=== PATIENT | female | born 1965 | race Caucasian/White ===

== ENCOUNTER 2017-06-23 13:53 | Day surgery (SDC) | payer BC, MEDICARE ==
[2017-06-19 10:01] LABS: BASOPHILS % (AUTO) 0.3 % (0-1); EOSINOPHILS # (AUTO) 0.3 X10'3 (0-0.9); EOSINOPHILS % (AUTO) 3.1 % (0-6); HEMATOCRIT 40.9 % (35.0-45.0); LYMPHOCYTES # (AUTO) 2.6 X10'3 (1.1-4.8); LYMPHOCYTES % (AUTO) 29.3 % (21-51); MEAN CORPUSCULAR HGB CONC 34.2 % (33.0-36.5); MEAN CORPUSCULAR VOLUME 87.7 FL (78-98); MEAN PLATELET VOLUME 7.7 FL (7.4-10.4); MONOCYTES # (AUTO) 0.4 X10'3 (0-0.9); MONOCYTES % (AUTO) 4.8 % (2-12); NEUTROPHILS # (AUTO) 5.6 X10'3 (1.8-7.7); NEUTROPHILS % (AUTO) 62.5 % (42-75); PLATELET COUNT 300 X10'3 (140-440); RED BLOOD COUNT 4.66 X10'6 (4.20-5.60); RED CELL DISTRIBUTION WIDTH 15.1 % (11.5-14.5); WHITE BLOOD COUNT 8.9 X10'3 (4.5-11.0)
[2017-06-19 10:11] LABS: INR 0.9 INR; PARTIAL THROMBOPLASTIN TIME 27 SECONDS (22-32); PROTHROMBIN TIME 9.7 SECONDS (9.0-12.0)
[2017-06-19 10:16] LABS: ALBUMIN 3.3 G/DL (3.4-5.0); ANION GAP 8 (8-16); BLOOD UREA NITROGEN 11 MG/DL (7-18); CALCIUM 8.6 MG/DL (8.5-10.1); CHLORIDE 108 MMOL/L (99-107); CHOL/HDL RATIO 3.2 (0.00-4.99); CHOLESTEROL 110 MG/DL (0-200); GLUCOSE 105 MG/DL (70-104); HDL CHOLESTEROL 34 MG/DL (35-60); LDL CHOLESTEROL 67 MG/DL (50-100); SODIUM 143 MMOL/L (135-145); TOTAL CARBON DIOXIDE 27.2 MMOL/L (24-32); TRIGLYCERIDES 121 MG/DL (20-135); eGFR > 90 ML/MIN
[2017-06-23] VITALS (7 sets, daily range): BP systolic 129–162; BP diastolic 77–97
[~2017-06-23] VITALS: Ht 162.6 cm; Wt 95.0 kg
[~2017-06-23 13:53] MED LIST: ADAL40KI SQ; ASPI-1265 PO; ATOR20TA66 PO; FLUT16SP2 NS; IBUP-1984 PO; LOP25T PO; LOSA50TA3 PO; MESA10002 RC; [UNRECOGNIZED DRUG - CODE] NS
[2017-06-23] MEDS ORDERED: normal saline 1000ml 1,000 ML IV SCH (14:10)
[2017-06-23] MEDS ORDERED: diphenhydrAMINE 25mg capsule PO PRN (14:10)
[2017-06-23] MEDS ORDERED: LORazepam 0.5 MG tablet PO PRN (14:10)
[2017-06-23] MEDS ORDERED: FURO-149 PO (14:34)
[2017-06-23] MEDS ORDERED: ASCO500C15 PO (14:34)
[2017-06-23] MEDS ORDERED: POTA10CA44 PO (14:34)
[2017-06-23] MEDS ORDERED: METO-467 PO (14:34)
[2017-06-23] MEDS ORDERED: NITR0.4T51 SL (14:34)
[2017-06-23] MEDS ORDERED: iohexol 350MG/ML 100ml bottle IV ONE (16:20)
[2017-06-23] MEDS ORDERED: fentaNYL/PF 50MCG/1 ML 2ML syringe ONE (16:20)
[2017-06-23] MEDS ORDERED: midazolam 2 mg/2 ml injection ONE (16:20)
[2017-06-23] MEDS ORDERED: LIDOcaine 1%/PF (10mg/ml) 5ml vial ONE (16:23)
[2017-06-23] MEDS ORDERED: hydrALAZINE 20mg/ml inj. IV ONE (17:13)
[2017-06-23] MEDS ORDERED: ondansetron/PF 4mg/2ml inj IV PRN (17:55)
[2017-06-23] MEDS ORDERED: OXAZEpam 15mg capsule PO PRN (17:55)
[2017-06-23] MEDS ORDERED: proCHLORperazine 10 MG/2 ml inj IV PRN (17:55)
== END 2017-06-23 19:25 | disposition home or self-care (01) ==
LOC: SSTAY O 13:53
PROVIDERS: ATTEND Internal Medicine Interventional Cardiology
DX: I25.10 Atherosclerotic heart disease of native coronary artery without angina pectoris (principal); I25.2 Old myocardial infarction; I10 Essential (primary) hypertension; Z95.5 Presence of coronary angioplasty implant and graft
CPT/HCPCS: 36415; 80048; 80061; 85025; 85610; 85730; 93005; 93458; A6257; C1760; C1769; J0360; J1644; J2001; J2250; J3010; J7030; Q0163; Q9967; 99152; 99153; A4620

== ENCOUNTER 2019-01-22 04:23 | Outpatient (CLI) | payer BC, MEDICARE ==
[~2019-01-22 04:23] MED LIST changes: +ASCO500C15 PO; +FURO-149 PO; -LOP25T PO; -MESA10002 RC; +METO-467 PO; +NITR0.4T51 SL; +POTA10CA44 PO
== END 2019-01-22 23:59 | disposition home or self-care (01) ==
LOC: DIABETIC 04:23
PROVIDERS: ATTEND Nurse Practitioner Family
DX: E11.9 Type 2 diabetes mellitus without complications (principal); E78.5 Hyperlipidemia, unspecified; I10 Essential (primary) hypertension; J45.909 Unspecified asthma, uncomplicated; Z79.82 Long term (current) use of aspirin; Z79.899 Other long term (current) drug therapy
CPT/HCPCS: G0108

== ENCOUNTER 2019-02-22 00:36 | Outpatient (CLI) | payer BC, MEDICARE | END 2019-02-22 23:59 | disposition home or self-care (01) | LOC: DIABETIC 00:36 | PROVIDERS: ATTEND Nurse Practitioner Family | DX: E11.9 Type 2 diabetes mellitus without complications (principal); E78.5 Hyperlipidemia, unspecified; I10 Essential (primary) hypertension; J45.909 Unspecified asthma, uncomplicated | CPT/HCPCS: G0108 ==

== ENCOUNTER 2019-03-08 08:47 | Day surgery (SDC) | payer BC, MEDICARE ==
[2019-03-08] MEDS ORDERED: LIDOcaine 2% 5ml jelly ONE (09:28)
== END 2019-03-08 10:40 | disposition home or self-care (01) ==
LOC: WOUND CARE 08:47
PROVIDERS: ATTEND Surgery
DX: E11.622 Type 2 diabetes mellitus with other skin ulcer (principal); L89.892 Pressure ulcer of other site, stage 2; J45.909 Unspecified asthma, uncomplicated; I10 Essential (primary) hypertension; I25.10 Atherosclerotic heart disease of native coronary artery without angina pectoris; I25.2 Old myocardial infarction; E78.5 Hyperlipidemia, unspecified; Z87.891 Personal history of nicotine dependence; Z79.82 Long term (current) use of aspirin; Z79.899 Other long term (current) drug therapy
CPT/HCPCS: 97597; A4663; A6021; A6212

== ENCOUNTER 2019-03-15 08:20 | Outpatient (CLI) | payer BC, MEDICARE | END 2019-03-15 10:25 | disposition home or self-care (01) | LOC: WOUND CARE 08:20 → EDSTATUS 08:30 → WOUND CARE 10:25 | PROVIDERS: ATTEND Surgery | DX: E11.622 Type 2 diabetes mellitus with other skin ulcer (principal); L89.892 Pressure ulcer of other site, stage 2; L97.121 Non-pressure chronic ulcer of left thigh limited to breakdown of skin; J45.909 Unspecified asthma, uncomplicated; I10 Essential (primary) hypertension; I25.10 Atherosclerotic heart disease of native coronary artery without angina pectoris; E78.5 Hyperlipidemia, unspecified; I25.2 Old myocardial infarction; Z87.891 Personal history of nicotine dependence; Z79.82 Long term (current) use of aspirin; Z79.899 Other long term (current) drug therapy | CPT/HCPCS: 36416; 82948; G0463; A4663; A6021; A6154; A6212 ==

== ENCOUNTER 2019-03-22 08:22 | Outpatient (CLI) | payer BC, MEDICARE | END 2019-03-22 10:15 | disposition home or self-care (01) | LOC: WOUND CARE 08:22 → EDSTATUS 08:30 → WOUND CARE 10:15 | PROVIDERS: ATTEND Surgery | DX: E11.622 Type 2 diabetes mellitus with other skin ulcer (principal); L89.892 Pressure ulcer of other site, stage 2; L97.121 Non-pressure chronic ulcer of left thigh limited to breakdown of skin; J45.909 Unspecified asthma, uncomplicated; I10 Essential (primary) hypertension; E78.5 Hyperlipidemia, unspecified; I25.10 Atherosclerotic heart disease of native coronary artery without angina pectoris; I25.2 Old myocardial infarction; Z87.891 Personal history of nicotine dependence; Z79.82 Long term (current) use of aspirin; Z79.899 Other long term (current) drug therapy | CPT/HCPCS: 36416; 82948; G0463; A4663; A6212 ==

== ENCOUNTER 2019-04-02 08:28 | Outpatient (CLI) | payer BC, MEDICARE ==
[2019-04-02] MEDS ORDERED: LIDOcaine/PRILOcaine 5gm cream TP ONE (09:10)
== END 2019-04-02 10:26 | disposition home or self-care (01) ==
LOC: WOUND CARE 08:28 → EDSTATUS 08:30 → WOUND CARE 10:26
PROVIDERS: ATTEND Surgery
DX: E11.622 Type 2 diabetes mellitus with other skin ulcer (principal); L89.892 Pressure ulcer of other site, stage 2; L97.121 Non-pressure chronic ulcer of left thigh limited to breakdown of skin; J45.909 Unspecified asthma, uncomplicated; I10 Essential (primary) hypertension; E78.5 Hyperlipidemia, unspecified; I25.10 Atherosclerotic heart disease of native coronary artery without angina pectoris; I25.2 Old myocardial infarction; Z87.891 Personal history of nicotine dependence; Z79.82 Long term (current) use of aspirin; Z79.899 Other long term (current) drug therapy
CPT/HCPCS: A4663; A6021; A6154; A6212; G0463

== ENCOUNTER 2019-05-28 04:28 | Outpatient (CLI) | payer BC, MEDICARE | END 2019-05-28 23:59 | disposition home or self-care (01) | LOC: DIABETIC 04:28 | PROVIDERS: ATTEND Nurse Practitioner Family | DX: E11.9 Type 2 diabetes mellitus without complications (principal); E78.5 Hyperlipidemia, unspecified | CPT/HCPCS: G0108 ==

== ENCOUNTER 2019-06-17 08:29 | Outpatient (CLI) | payer BC, MEDICARE | END 2019-06-17 10:20 | disposition home or self-care (01) | LOC: WOUND CARE 08:29 → EDSTATUS 08:30 → WOUND CARE 10:20 | PROVIDERS: ATTEND Surgery | DX: E11.622 Type 2 diabetes mellitus with other skin ulcer (principal); L89.892 Pressure ulcer of other site, stage 2; L98.492 Non-pressure chronic ulcer of skin of other sites with fat layer exposed; J45.909 Unspecified asthma, uncomplicated; I10 Essential (primary) hypertension; E78.5 Hyperlipidemia, unspecified; I25.10 Atherosclerotic heart disease of native coronary artery without angina pectoris; I25.2 Old myocardial infarction; Z87.891 Personal history of nicotine dependence; Z79.82 Long term (current) use of aspirin; Z79.899 Other long term (current) drug therapy | CPT/HCPCS: A4663; A6021; A6212; G0463 ==

== ENCOUNTER 2019-07-01 08:25 | Outpatient (CLI) | payer BC, MEDICARE | END 2019-07-01 10:02 | disposition home or self-care (01) | LOC: WOUND CARE 08:25 → EDSTATUS 08:30 → WOUND CARE 10:02 | PROVIDERS: ATTEND Surgery | DX: E11.622 Type 2 diabetes mellitus with other skin ulcer (principal); L89.892 Pressure ulcer of other site, stage 2; L98.492 Non-pressure chronic ulcer of skin of other sites with fat layer exposed; J45.909 Unspecified asthma, uncomplicated; G82.22 Paraplegia, incomplete; I10 Essential (primary) hypertension; E78.5 Hyperlipidemia, unspecified; I25.10 Atherosclerotic heart disease of native coronary artery without angina pectoris; I25.2 Old myocardial infarction; Z87.891 Personal history of nicotine dependence; Z79.82 Long term (current) use of aspirin; Z79.899 Other long term (current) drug therapy | CPT/HCPCS: G0463 ==